=== PATIENT | female | born 1940 | race African-American/Black ===

== ENCOUNTER → 2017-01-30 | Outpatient (CLI) | payer MEDICARE | LOC: WI 08:45 | PROVIDERS: ATTEND Family Medicine | DX: M85.9 Disorder of bone density and structure, unspecified (principal); M85.88 Other specified disorders of bone density and structure, other site; Z12.31 Encounter for screening mammogram for malignant neoplasm of breast | CPT/HCPCS: 77063; 77080; G0202; 77067 ==

== ENCOUNTER → 2018-04-08 | Outpatient (CLI) | payer MEDICARE ==
--- NOTE | 2018-04-08 12:19 | DRAGON STRESS TEST REPORT ---
EXERCISE TREADMILL TEST. DATE OF PROCEDURE: April 08, 2018 INDICATION: Abnormal electrocardiogram. Coronary risk factors: Diabetes, dyslipidemia Resting EKG: Sinus rhythm with mild ST segment depression and T-wave inversion in lateral chest leads lead I and aVL. Possibly related to LVH. Stress EKG: No significant changes noted with with exercise treadmill. Reason for termination: Inability to walk on the treadmill and shortness of breath.. PROCEDURE REPORT: Baseline heart rate: 97 beats per minute with blood pressure of 155/71. Patient had no significant complaints at baseline. Patient was exercised on a standard Jerry protocol. Patient exercised for total of 0 minutes and 21 second. Exercise was stopped because of fatigue and shortness of breath. Patient denied any chest arm or neck discomfort during the exercise, at peak exercise or in recovery. If automatic blood pressure recorded and if felt not accurate manual blood pressure then were recorded at appropriate intervals. Peak heart rate: 115 bpm, 79 of predicted maximum. Peak blood pressure: 155/71 mmHg. Double product: 14.6 kcal Exercise EKG: Showed some baseline artifact during exercise but no significant additional ST segment changes noted. CONCLUSIONS: Indeterminate stress test basically due to patient not being able to walk on the treadmill.. RECOMMENDATIONS: Schedule patient for a pharmacologic nuclear stress test. Also consider scheduling a 2D echo for baseline abnormal EKG. Aggressive risk factor modification, medical therapy. Consider cardiology consultation if clinically indicated. Susan Galarza M.D., MARTINE [employer], Board certified in cardiovascular diseases, Nuclear cardiology, Echocardiography Cardiac CT and cardiac MRI Ph. [phone] Ph. [phone] [facility]
== END ==
LOC: SP 08:47
PROVIDERS: ATTEND Family Medicine
DX: R94.31 Abnormal electrocardiogram [ECG] [EKG] (principal)
CPT/HCPCS: 93017

== ENCOUNTER → 2018-05-24 | Outpatient (CLI) | payer MEDICARE ==
--- NOTE | 2018-05-25 11:19 | XCELERA REPORT ---
[address] [address] Lower Extremity Arterial Evaluation Name: LORETTA HODGSON Age: 77 yrs Gender: Female : 1940 Patient Status: Outpatient Patient Location: Study Date: 05/24/2018 02:20 PM Procedure: A color flow and duplex scan of the lower extremity arteries was performed bilaterally with velocity and waveform anaylsis. Ankle brachial indicies performed. Reason For Study: PAD Ordering Physician: SALLIE VALENCIA Performed By: Ricki Scott Measurements and Calculations Right Left PHOTOGRAMMETRIC SURVEYOR PSV 137.1 131.2 cm/sec Prox PFA PSV -104.2 102.0 cm/sec Prox SFA PSV 115.7 134.1 cm/sec Mid SFA PSV -198.7 -217.8 cm/sec Dist SFA PSV -100.9 -167.6 cm/sec Prox Pop A PSV 88.8 134.8 cm/sec Dist RONNY PSV 43.4 48.6 cm/sec Dist SEAT MAKER PSV 80.3 44.9 cm/sec Austyn Pedis PSV -26.5 26.9 cm/sec Right Side Arterial Evaluation Normal velocity and triphasic waveforms noted in the Common Femoral artery. Biphasic from Femoral to the infrageniculate vessels. Velocities are normal except for elevation in mid femoral 0-19% stenosis at the Femoral artery. Ankle Brachial index is 1.02. Left Side Arterial Evaluation Normal velocity and triphasic waveforms noted in the Common Femoral artery. Biphasic from Femoral to the infrageniculate vessels. Velocities are normal except for elevation in mid femoral 0-19% stenosis at the Femoral artery. Ankle Brachial index is 0.95. Interpretation Summary Mild hemodynamically significant lesions in the bilateral lower extremities, on duplex imaging, at rest. : SALLIE VALENCIA > Ruben Swanson
== END ==
LOC: SP 13:14
PROVIDERS: ATTEND Podiatrist Foot Surgery
DX: I70.25 Atherosclerosis of native arteries of other extremities with ulceration (principal)
CPT/HCPCS: 93925

== ENCOUNTER 2020-01-05 07:55 | Day surgery (SDC) | payer MEDICARE, MEDICAID ==
[~2020-01-05 07:55] MED LIST: CHONDR SU A NA/HYALUR INTRAOC KIT (SURGICARE) ONE; DORZOLAMIDE HCL 2%/TIMOLOL MALEAT 0.5% OPH SOLN 10 ML OD PRN; EPINEPHRINE INJ/PF 1 MG/1 ML AMPULE ONE; KETOROLAC TROMETHAMINE 0.45% 4 DROP/0.4 ML DROPERETTE OD PRN; LIDOCAINE 1%/PHENYLEPHRINE 1.5% 1 ML VIAL ONE
[2020-01-05] MEDS: CYCLOPENTOLATE 0.2%/PHENYLEPHRINE 1% OPH SOLN 2 ML OD PRN ×3 (08:24→08:44)
[2020-01-05] MEDS: BESIFLOXACIN HCL 0.6% OPH SUSP 5 ML BOTTLE OD PRN ×3 (08:24→09:20)
[2020-01-05] MEDS: TROPICAMIDE 1% OPH SOLN 15 ML OD PRN ×3 (08:24→08:44)
[2020-01-05] MEDS: TETRACAINE HCL 0.5% OPH SOLN 4 ML OD PRN ×3 (08:25→08:59)
[2020-01-05] MEDS ORDERED: MIDAZOLAM 2 MG/2 ML INJ ONE (08:45)
[2020-01-05] MEDS ORDERED: FENTANYL CITRATE INJ/PF 100 MCG/2 ML AMPUL ONE (08:45)
--- NOTE | 2020-01-06 07:27 | Operative Report ---
Operative Report-[facility] Operative Report: DATE OF SURGERY: 01/05/2020 PREOPERATIVE DIAGNOSIS: Cataract, right eye POSTOPERATIVE DIAGNOSIS: Cataract, right eye OPERATION: Cataract extraction with insertion of an IOL of the right eye. Intraocular Lens Model: [19.5 sn60wf] Patient underwent surgery for difficulty seeing the television SURGEON: Levon Dwyer MD ANESTHESIA: Topical PROCEDURE: After obtaining appropriate consent, the patient's right eye was prepped and draped in a sterile fashion as well as the surgeon in the sterile manner and cataract surgery was started. First a paracentesis blade was used to make a side-port incision. Viscoelastic was used to inflate the anterior chamber. Next a 2.4 mm incision was made with a 2.4 mm blade, clear corneal temporarily. A continuous capsulorrhexis was made using a cystotome and Utrata forceps. Following this hydrodissection was carried out to make the taj fully loose and mobile and it was rotated. Following this, a divide and conquer technique was used to phacoemulsify the taj. The remaining cortex was removed with an irrigation/aspiration. Provisc was instilled into the capsular bag to inflate the bag. The intraocular lens was placed. The remaining viscoelastic material was removed with irrigation/aspiration. Following this, the incision was found to be watertight. Besivance and Cosopt was instilled into the eye and a protective shield was placed over the eye. The patient was reurned to the postoperative recovery in a stable condition.
== END 2020-01-05 10:10 | disposition home or self-care (01) ==
LOC: SC 07:55
PROVIDERS: ATTEND Internal Medicine
DX: H25.13 Age-related nuclear cataract, bilateral (principal); H40.1132 Primary open-angle glaucoma, bilateral, moderate stage; H34.8320 Tributary (branch) retinal vein occlusion, left eye, with macular edema; I10 Essential (primary) hypertension; E78.00 Pure hypercholesterolemia, unspecified; E11.9 Type 2 diabetes mellitus without complications; D64.9 Anemia, unspecified; Z88.5 Allergy status to narcotic agent; Z87.891 Personal history of nicotine dependence; Z79.899 Other long term (current) drug therapy; J44.9 Chronic obstructive pulmonary disease, unspecified
CPT/HCPCS: 66984; 00142; J2250; J3490 ×2; A9270; J0171; J3010; 142; V2632

== ENCOUNTER 2020-03-27 06:33 | Day surgery (SDC) | payer MEDICARE, MEDICAID ==
[~2020-03-27 06:33] MED LIST changes: -CHONDR SU A NA/HYALUR INTRAOC KIT (SURGICARE) ONE; -DORZOLAMIDE HCL 2%/TIMOLOL MALEAT 0.5% OPH SOLN 10 ML OD PRN; -EPINEPHRINE INJ/PF 1 MG/1 ML AMPULE ONE; -KETOROLAC TROMETHAMINE 0.45% 4 DROP/0.4 ML DROPERETTE OD PRN; +KETOROLAC TROMETHAMINE 0.45% 4 DROP/0.4 ML DROPERETTE OS PRN; -LIDOCAINE 1%/PHENYLEPHRINE 1.5% 1 ML VIAL ONE; +MIDAZOLAM 2 MG/2 ML INJ ONE; +TETRACAINE HCL 0.5% OPH SOLN 4 ML ONE
[2020-03-27] MEDS: TROPICAMIDE 1% OPH SOLN 15 ML OS PRN ×3 (06:56→07:22)
[2020-03-27] MEDS: CYCLOPENTOLATE 0.2%/PHENYLEPHRINE 1% OPH SOLN 2 ML OS PRN ×3 (06:56→07:22)
[2020-03-27] MEDS: BESIFLOXACIN HCL 0.6% OPH SUSP 5 ML BOTTLE OS PRN ×4 (06:57→07:47)
[2020-03-27] MEDS ORDERED: EPINEPHRINE INJ/PF 1 MG/1 ML AMPULE ONE (07:09)
[2020-03-27] MEDS ORDERED: LIDOCAINE 1%/PHENYLEPHRINE 1.5% 1 ML VIAL ONE (07:10)
[2020-03-27] MEDS ORDERED: CHONDR SU A NA/HYALUR INTRAOC KIT (SURGICARE) ONE (07:11)
[2020-03-27] MEDS: TETRACAINE HCL 0.5% OPH SOLN 4 ML OS PRN ×2 (07:23→07:29)
[2020-03-27] MEDS: DORZOLAMIDE HCL 2%/TIMOLOL MALEAT 0.5% OPH SOLN 10 ML OS PRN ×2 (07:47)
--- NOTE | 2020-03-27 10:58 | Operative Report ---
Operative Report-[facility] Operative Report: DATE OF SURGERY: 03/27/2020 PREOPERATIVE DIAGNOSIS: Cataracts, left eye POSTOPERATIVE DIAGNOSIS: Cataract, left eye OPERATION: Cataract extraction with insertion of an IOL of the left eye. Intraocular Lens Model: [20.0 sn60wf] Underwent surgery for difficulty watching the television SURGEON: Levon Dwyer MD ANESTHESIA: Topical PROCEDURE: After obtaining appropriate consent, the patient's left eye was prepped and draped in a sterile fashion as well as the surgeon in the sterile manner and cataract surgery was started. First a paracentesis blade was used to make a side-port incision. Viscoelastic was used to inflate the anterior chamber. Next a 2.4 mm incision was made with a 2.4 mm blade, clear corneal temporarily. A continuous capsulorrhexis was made using a cystotome and Utrata forceps. Following this hydrodissection was carried out to make the lens fully loose and mobile and it was rotated 90 degrees. Following this, a divide and conquer technique was used to phacoemulsify the lens. The remaining cortex was removed with an irrigation/aspiration. Provisc was instilled into the capsular bag to inflate the bag.The intraocular lens was placed. The remaining viscoelastic material was removed with irrigation/aspiration. Following this, the incision was found to be watertight. Besivance and Cosopt was instilled into the eye and a protective shield was placed over the eye. The patient was returned to the postoperative recovery in a stable condition.
== END 2020-03-27 08:20 | disposition home or self-care (01) ==
LOC: SC 06:33
PROVIDERS: ATTEND Internal Medicine
DX: H26.9 Unspecified cataract (principal); J44.9 Chronic obstructive pulmonary disease, unspecified; I10 Essential (primary) hypertension; E78.00 Pure hypercholesterolemia, unspecified; E11.9 Type 2 diabetes mellitus without complications; Z87.891 Personal history of nicotine dependence; Z88.5 Allergy status to narcotic agent; Z79.899 Other long term (current) drug therapy
CPT/HCPCS: 66984; J2250; J3490 ×2; A9270; J0171; V2632